=== PATIENT | male | born 1935 | race American Indian/Alaskan Native ===

== ENCOUNTER 2017-06-21 18:23 | Emergency (ER) | payer MEDICARE, OTHER ==
[2017-06-21 19:16] VITALS: BP 130/72
--- NOTE | 2017-06-21 19:17 | Emergency Department Report ---
Suture/Staple Removal - HPI Stated Complaint: remove stitches Time Seen by Provider: 06/21/17 19:06 Wound Location: patient says stitches in for approximately 6 days and is here for suture re ED Review of Systems ROS: Stated complaint: remove stitches Other details as noted in HPI Comment: All other systems reviewed and negative Suture Removal Exam - Exam General: Vital signs noted. No distress. Alert and acting appropriately. Wound: No Pathologic Erythema, No Tenderness, No Drainage, No Pus, No Wound Dehiscence Other Systems: All other systems reviewed and are unremarkable. ED Recheck MDM - Differential Diagnosis Wound Recheck, Suture/Staple Removal - Medical Decision Making 3 sutures were removed patient be discharged home Critical care attestation.: If time is entered above; I have spent that time in minutes in the direct care of this critically ill patient, excluding procedure time. ED Disposition Clinical Impression: Visit for suture removal Disposition: DC-01 TO HOME OR SELFCARE Is pt being admited?: No Does the pt Need Aspirin: No Condition: Stable
== END 2017-06-21 19:45 | disposition home or self-care (01) ==
LOC: ED 18:23
DX: Z48.02 Encounter for removal of sutures (principal)

== ENCOUNTER 2017-09-08 16:13 | Emergency (ER) | payer MEDICARE, OTHER ==
[2017-09-08 16:25] VITALS: BP 135/79
[2017-09-08] MEDS ORDERED: TYLENOL PO ONE (18:44)
[2017-09-08] MEDS ORDERED: BOOSTRIX IM ONE (18:56)
[2017-09-08] MEDS ORDERED: XYLOCAINE 2% INFILTRATI ONE (18:56)
--- NOTE | 2017-09-08 19:13 | Emergency Department Report ---
Chief Complaint: Extremity Injury, Upper Stated Complaint: LEFT FOREARM INJURY Time Seen by Provider: 09/08/17 18:04 - HPI History of Present Illness: The patient is a 81-year-old male who presents for evaluation and treatment of laceration. The patient states that he cut his left forearm on a fence while cutting grass. He complains of mild stinging pain since the incident, nearly resolved currently. He is unsure of his last known tetanus immunization - Exam Vital Signs: Vital Signs 09/08/17 16:22 Temperature 98.2 F Pulse Rate 68 Respiratory 18 Rate Blood Pressure 135/79 O2 Sat by Pulse 98 Oximetry MSE screening note: Focused history and physical exam performed. Due to findings the following was ordered: ED Disposition for MSE Condition: Undetermined Referrals: PRIMARY CARE, [Primary Care Provider] - 3-5 Days
--- NOTE | 2017-09-08 19:32 | Emergency Department Report ---
ED Upper Extremity Inj HPI - General Chief Complaint: Extremity Injury, Upper Stated Complaint: LEFT FOREARM INJURY Time Seen by Provider: 09/08/17 18:04 Source: patient Mode of arrival: Ambulatory Limitations: No Limitations - History of Present Illness Initial Comments: The patient is a 81-year-old male who presents for evaluation and treatment of laceration. The patient states that he cut his left forearm on a fence while cutting grass. He complains of mild stinging pain since the incident, nearly resolved currently. He is unsure of his last known tetanus immunization MD Complaint: Injury to:: left Onset/Timin -: hour(s) Other Extremity Injury: Forearm: Left Other Injuries: none Place: home Severity scale (0 -10): 3 Improves With: none Worsens With: none Context: other (skin tear abrasion left dorsal forearm ) Associated Symptoms: denies other symptoms - Related Data Home Medications Medication Instructions Recorded Confirmed Last Taken Aspirin BABY CHEW TAB 81 mg PO DAILY 06/16/15 06/16/15 Unknown Lisinopril 2.5 mg PO DAILY 06/16/15 06/16/15 Unknown Metoprolol SUCCINATE ER TAB 25 mg PO DAILY 06/16/15 06/16/15 Unknown Plavix 75 mg PO DAILY 06/16/15 06/16/15 Unknown Pravastatin 20 mg PO HS 06/16/15 06/16/15 Unknown Previous Rx's Medication Instructions Recorded Last Taken Type Acetaminophen [Tylenol Extra 1,000 mg PO QID PRN #60 tablet 09/08/17 Unknown Rx Strength] Allergies Allergy/AdvReac Type Severity Reaction Status Date / Time No Known Allergies Allergy Unverified 06/16/15 00:31 ED Review of Systems ROS: Stated complaint: LEFT FOREARM INJURY Other details as noted in HPI Constitutional: denies: chills, fever Eyes: denies: eye pain, eye discharge, vision change ENT: denies: ear pain, throat pain Respiratory: denies: cough, shortness of breath, wheezing Cardiovascular: denies: chest pain, palpitations Endocrine: no symptoms reported Gastrointestinal: denies: abdominal pain, nausea, diarrhea Genitourinary: denies: urgency, dysuria Musculoskeletal: denies: back pain, joint swelling, arthralgia Skin: other (abrasion left forearm ) Neurological: denies: headache, weakness, paresthesias Psychiatric: denies: anxiety, depression Hematological/Lymphatic: denies: easy bleeding, easy bruising ED Past Medical Hx - Past Medical History Previous Medical History?: Yes Hx Hypertension: Yes Hx Heart Attack/AMI: No (CABG) Additional medical history: High Cholestorol - Surgical History Past Surgical History?: Yes Additional Surgical History: CABG. Right Elbow - Social History Smoking Status: Never Smoker Substance Use Type: Prescribed - Medications Home Medications: Home Medications Medication Instructions Recorded Confirmed Last Taken Type Aspirin BABY CHEW TAB 81 mg PO DAILY 06/16/15 06/16/15 Unknown History Lisinopril 2.5 mg PO DAILY 06/16/15 06/16/15 Unknown History Metoprolol SUCCINATE ER TAB 25 mg PO DAILY 06/16/15 06/16/15 Unknown History Plavix 75 mg PO DAILY 06/16/15 06/16/15 Unknown History Pravastatin 20 mg PO HS 06/16/15 06/16/15 Unknown History Acetaminophen [Tylenol Extra 1,000 mg PO QID PRN #60 tablet 09/08/17 Unknown Rx Strength] ED Physical Exam - General Limitations: No Limitations General appearance: alert, in no apparent distress - Head Head exam: Present: atraumatic, normocephalic - Eye Eye exam: Present: normal appearance - ENT ENT exam: Present: mucous membranes moist - Neck Neck exam: Present: normal inspection - Respiratory Respiratory exam: Present: normal lung sounds bilaterally. Absent: respiratory distress - Cardiovascular Cardiovascular Exam: Present: regular rate, normal rhythm. Absent: systolic murmur, diastolic murmur, rubs, gallop - GI/Abdominal GI/Abdominal exam: Present: soft, normal bowel sounds - Rectal Rectal exam: Present: deferred - Extremities Exam Extremities exam: Present: full ROM, tenderness (left forearm), normal capillary refill. Absent: pedal edema, joint swelling, calf tenderness - Expanded Upper Extremity Exam Left Forearm Wrist exam: Present: full ROM, tenderness, abrasion, laceration (skin tear apporx 2. 5 inc). Absent: swelling, ecchymosis, deformity, crepidus, dislocation, erythema, tenderness over anatomical snuff box, pain with axial thumb loading Hand Wrist exam: Present: normal inspection, full ROM. Absent: swelling, abrasion Neuro motor exam: Present: wrist extension intact, thumb opposition intact, thumb IP flexion intact, thumb adduction intact, fingers 2-5 abduction intact Neurosensory exam: Present: 2-point discrimination, radial nerve intact, ulnar nerve intact, median nerve intact Vascular: Present: normal capillary refill, radial pulse. Absent: vascular compromise, Pallo, pulse deficit radial art, pulse deficit ulnar art, pulse deficit brachial art - Back Exam Back exam: Present: normal inspection, full ROM - Neurological Exam Neurological exam: Present: alert, oriented X3 - Psychiatric Psychiatric exam: Present: normal affect, normal mood - Skin Skin exam: Present: warm, dry, intact, normal color. 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, all bleeding controlled, pt tolerated procedure with minimal distress ED Medical Decision Making - Medical Decision Making left forearm skin tear repaired with skin adhesive all bleeding controlled pt tolerated procedure with mininal distress given wound care instruction pt verbalized understanding of same, there is no laceration no nerve muscle or tendon involve pt did recieve tetanus will follow up with pcp in 2-3 days for wound check Critical care attestation.: If time is entered above; I have spent that time in minutes in the direct care of this critically ill patient, excluding procedure time. ED Disposition Clinical Impression: Skin tear of forearm without complication Qualifiers: Encounter type: initial encounter Laterality: left Qualified Code(s): S51.812A - Laceration without foreign body of left forearm, initial encounter Disposition: - TO HOME OR SELFCARE Is pt being admited?: No Does the pt Need Aspirin: No Condition: Good Instructions: Skin Tear (ED) Prescriptions: Acetaminophen [Tylenol Extra Strength] 1,000 mg PO QID PRN #60 tablet PRN Reason: Pain Referrals: PRIMARY CARE,MD [Primary Care Provider] - 3-5 Days Forms: Work/School Release Form(ED) Time of Disposition: 19:36
== END 2017-09-08 19:46 | disposition home or self-care (01) ==
LOC: ED 16:13
DX: S51.812A Laceration without foreign body of left forearm, initial encounter (principal); I10 Essential (primary) hypertension; E78.00 Pure hypercholesterolemia, unspecified; W45.8XXA Other foreign body or object entering through skin, initial encounter; Y93.89 Activity, other specified; Y92.89 Other specified places as the place of occurrence of the external cause; Y99.8 Other external cause status
CPT/HCPCS: 90471; 90715